=== PATIENT | female | born 1990 | race Caucasian/White ===

== ENCOUNTER 2016-12-20 17:44 | Emergency (ER) | payer OTHER ==
[~2016-12-20] VITALS: Wt 65.0 kg
[2016-12-20] MEDS ORDERED: predniSONE 20 MG TAB PO STA (19:30)
[2016-12-20] MEDS ORDERED: ALBUTEROL 0.5% (NEB) 2.5 MG/0.5 ML AMP NEB STA (19:30)
[2016-12-20] MEDS ORDERED: IPRATROPIUM (NEB) 0.5 MG/2.5 ML AMP NEB STA (19:30)
--- NOTE | 2016-12-20 20:35 | RADRPT ---
PROCEDURE: XR Chest AP portable CLINICAL INDICATION: Asthma attack TECHNIQUE: An AP portable radiograph of the chest was submitted. COMPARISON: None. FINDINGS: Support Hardware: None Cardiovascular: The cardiovascular silhouette appears unremarkable. Lung Floyd: The lung floyd are hyperexpanded but clear. Pleural Spaces: No pneumothorax or pleural effusion is identified. Osseous Structures: The osseous structures appear intact. Soft Tissues: Bilateral nipple studs are evident. IMPRESSION: 1. Pulmonary hyperexpansion. 2. Otherwise, unremarkable portable chest. Physician Katt Date Time Electronically viewed and signed by Haleigh Sesay Physician on 12/20/2016 20:35 RH/
[2016-12-20] MEDS ORDERED: AZIT250T94 PO (21:06)
[2016-12-20] MEDS ORDERED: D-ME473S18 PO (21:07)
[2016-12-20] MEDS ORDERED: ALBU2.5V3 NEB (21:07)
[2016-12-20] MEDS ORDERED: PRED20TA PO (21:07)
[2016-12-20] MEDS ORDERED: ALBU8.5H3 INH (21:07)
--- NOTE | 2016-12-20 21:13 | ERD ---
ER Documentation Chief Complaint Date/Time DATE: 12/20/16 TIME: 21:08 Chief Complaint ASTHMA HPI Patient is a 26-year-old female who presents to the emergency department with "asthma attack". Patient states she has had a productive cough for the last 3 days. She states that her cough is worse at night. Patient has not taken any cough syrup. Patient states that she is having some wheezing. Patient states she has been using her albuterol inhaler with minimal alleviation of symptoms. Patient has ran out of her inhaler and is requesting refills. Patient denies any fever, chills, nausea, vomiting, abdominal pain, ear pain, throat pain, loss of consciousness. She states that her roommate is also sick with the flu. No recent travel. ROS All systems reviewed and are negative except as per history of present illness. Medications Home Meds Active Scripts Dextromethorphan Hb-Promethazine Hcl (Promethazine DM Syrup) 473 Ml Syrup, 5 ML PO Q6 Y for COUGH, #1 BOT Prov:DARRYN RAINES PA-C 12/20/16 Albuterol Sulfate* (Albuterol Sulfate* Neb) 0.083%-3 Ml Neb, 5 MG NEB Q4 Y for SHORTNESS OF BREATH, #30 EA Prov:DARRYN RAINES PA-C 12/20/16 Prednisone* (Prednisone*) 20 Mg Tab, 40 MG PO DAILY for 4 Days, TAB Prov:DARRYN RAINES PA-C 12/20/16 Albuterol Sulfate* (Proair HFA*) 8.5 Gm Hfa.aer.ad, 2 PUFF INH Q4, #1 INHALER Prov:DARRYN RAINES PA-C 12/20/16 Azithromycin* (Zithromax*) 250 Mg Tablet, 250 MG PO .ZPACK DIRECTED, #6 TAB TAKE 500 MG (2 TABS) THE FIRST DAY THEN 250 MG (1 TAB) DAYS 2-5 Prov:DARRYN RAINES PA-C 12/20/16 PMhx/Soc Medical and Surgical Hx: pt denies Surgical Hx Hx Respiratory Disorders: Yes (asthma) Hx Alcohol Use: Yes (sometimes) Hx Substance Use: No Hx Tobacco Use: No Smoking Status: Never smoker Physical Exam Vitals Vital Signs Date Time Temp Pulse Resp B/P Pulse Ox O2 Delivery O2 Flow Rate FiO2 3/7/17 20:15 77 18 97 21 12/20/16 17:58 99.4 98 22 118/65 99 Physical Exam GENERAL: Well-developed, well-nourished female. Appears in no acute distress. No nasal flaring, no abdominal retractions, no tripoding. HEAD: Normocephalic, atraumatic. No deformities or ecchymosis. EYE: Pupils equal, round, and reactive to light. EOMs intact. No conjunctival erythema. No eye discharge. ENT: External ear without any masses or tenderness. Auditory canals clear bilaterally. TM visualized bilaterally, non-erythematous, non-bulging. Nasal mucosa pink with no discharge. Oropharynx is pink without any tonsillar erythema or exudates. No uvula deviation. No kissing tonsils. NECK: Supple. No meningismus. Normal ROM of the neck. LUNG: Slight wheezing noted in bilateral lower lobes. HEART: Regular rate and rhythm. No murmurs, rubs or gallops. BACK: No midline tenderness. EXTREMITES: Equal pulses bilaterally. No peripheral clubbing, cyanosis or edema. No unilateral leg swelling. NEUROLOGIC: Alert and oriented to person, place and time. Moving all four extremities. 5/5 strength in all extremities. Normal speech. Steady gait. SKIN: Normal color. Warm and dry. No rashes or lesions. Results 24 hrs Current Medications Medications (Trade) Dose Ordered Sig/Svetlana Route PRN Reason Start Time Stop Time Status Last Admin Dose Admin Albuterol (Proventil 0.5% (Neb)) 5 mg ONCE STAT NEB 12/20/16 19:30 12/20/16 19:32 DC 12/20/16 20:12 Ipratropium [place] (Atrovent 0.02% (Neb)) 0.5 mg ONCE STAT NEB 12/20/16 19:30 12/20/16 19:32 DC 12/20/16 20:12 Prednisone (Prednisone) 40 mg ONCE STAT PO 12/20/16 19:30 12/20/16 19:32 DC 12/20/16 20:11 Procedures/MDM ED COURSE: The patient was stable throughout ED course. I kept the patient and/or family informed of laboratory and diagnostic imaging results throughout the ED course. DIAGNOSTIC IMAGING: Read by radiologist. DIAGNOSTIC IMAGING REPORT Patient: OLIVER COYLE : 1990 Age: 26 Sex: F MR #: [id number] [facility] #: [id number] DOS: 12/20/161929 Ordering MD: DARRYN RAINES PA-C Location: [facility] Room/Bed: PROCEDURE: XR Chest AP portable CLINICAL INDICATION: Asthma attack TECHNIQUE: An AP portable radiograph of the chest was submitted. COMPARISON: None. FINDINGS: Support Hardware: None Cardiovascular: The cardiovascular silhouette appears unremarkable. Lung Godoy: The lung godoy are hyperexpanded but clear. Pleural Spaces: No pneumothorax or pleural effusion is identified. Osseous Structures: The osseous structures appear intact. Soft Tissues: Bilateral nipple studs are evident. IMPRESSION: 1. Pulmonary hyperexpansion. 2. Otherwise, unremarkable portable chest. Physician Katt Date Time Electronically viewed and signed by Physician Katt on 12/20/2016 20:35 RH/ CC: DARRYN RAINES PA-C MEDICATIONS GIVEN: Albuterol breathing treatment, prednisone p.o. Patient tolerated medication well with no adverse reactions. Patient reported improvement in breathing. Upon reexamination, patient was noted to have improved breath sounds. MEDICAL DECISION MAKING: This is a 26-year-old female who presents for concerns of an asthma exacerbation. Patient also reports a productive cough 3 days. Vital signs were reviewed. Patient was afebrile. Patient was not hypoxic. ENT exam was normal. Lung exam initially revealed faint wheezing in bilateral lobes. Patient was given a breathing treatment here in the emergency department which did improve her blood cells. Patient states that she felt better and she wished to go home. Patient was given p.o. prednisone here in the emergency department as well. Chest x-ray was unremarkable. Given these findings, the patients presentation is most consistent with asthma exacerbation secondary to viral URI. I have a much lower clinical concern for bacterial infections including pneumonia, meningitis, sinusitis, otitis externa, acute otitis media, strep pharyngitis, epiglottitis or peritonsillar abscess. Upon discharge, patient's O2 sat was noted to be 98%. Low suspicion for acute respiratory failure or respiratory distress. PRESCRIPTIONS: Albuterol nebulized treatments, pro-air inhaler, Z-Christian, Promethazine DM, prednisone DISCHARGE: At this time, patient is stable for discharge and outpatient management. She was provided with a copy of all imaging studies obtained today. Supportive therapies such as OTC throat lozenges, salt water gurgles, popsicles and jello discussed. I have instructed the patient to follow-up with his/her primary care physician in 1-2 days. I have instructed the patient to promptly return to the ER for any new or worsening symptoms including increased pain, swelling, fever, nausea, vomiting, weakness or difficulty breathing. The patient and/or family expressed understanding of and agreement with this plan. All questions were answered. Home care instructions were provided. Departure Diagnosis: Primary Impression: Asthma with acute exacerbation Asthma severity: unspecified severity Qualified Code: J45.901 - Asthma with acute exacerbation, unspecified asthma severity Additional Impression: Viral URI Condition: Stable Patient Instructions: Asthma, Acute (Child) Referrals: [facility] YOU HAVE RECEIVED A MEDICAL SCREENING EXAM AND THE RESULTS INDICATE THAT YOU DO NOT HAVE A CONDITION THAT REQUIRES URGENT TREATMENT IN THE EMERGENCY DEPARTMENT. FURTHER EVALUATION AND TREATMENT OF YOUR CONDITION CAN WAIT UNTIL YOU ARE SEEN IN YOUR DOCTORS OFFICE WITHIN THE NEXT 1-2 DAYS. IT IS YOUR RESPONSIBILITY TO MAKE AN APPOINTMENT FOR FOLOW-UP CARE. IF YOU HAVE A PRIMARY DOCTOR --you should call your primary doctor and schedule an appointment IF YOU DO NOT HAVE A PRIMARY DOCTOR YOU CAN CALL OUR PHYSICIAN REFERRAL HOTLINE AT IF YOU CAN NOT AFFORD TO SEE A PHYSICIAN YOU CAN CHOSE FROM THE FOLLOWING [facility] [address] [facility] [address] [facility] [facility] [address] [facility] [address] [facility] [address] [facility]. [facility]. [address] [facility]. [facility] YOU HAVE RECEIVED A MEDICAL SCREENING EXAM AND THE RESULTS INDICATE THAT YOU DO NOT HAVE A CONDITION THAT REQUIRES URGENT TREATMENT IN THE EMERGENCY DEPARTMENT. FURTHER EVALUATION AND TREATMENT OF YOUR CONDITION CAN WAIT UNTIL YOU ARE SEEN IN YOUR DOCTORS OFFICE WITHIN THE NEXT 1-2 DAYS. IT IS YOUR RESPONSIBILITY TO MAKE AN APPOINTMENT FOR FOLOW-UP CARE. IF YOU HAVE A PRIMARY DOCTOR --you should call your primary doctor and schedule and appointment IF YOU DO NOT HAVE A PRIMARY DOCTOR YOU CAN CALL OUR PHYSICIAN REFERRAL HOTLINE AT . IF YOU CAN NOT AFFORD TO SEE A PHYSICIAN YOU CAN CHOSE FROM THE FOLLOWING [facility] INSTITUTIONS: [facility] [address] [place] [address] [facility] [address] [place] [address] [facility] [address] [place] [address] Additional Instructions: Call your primary care doctor TOMORROW for an appointment during the next 1-2 days.See the doctor sooner or return here if your condition worsens before your appointment time. DARRYN RAINES PA-C Dec 20, 2016 21:12
[2016-12-20 21:19] VITALS: RESP 18
== END 2016-12-20 21:23 | disposition home or self-care (01) ==
LOC: FTE 17:44
DX: J45.901 Unspecified asthma with (acute) exacerbation (principal); J06.9 Acute upper respiratory infection, unspecified
CPT/HCPCS: 71010; 94664; J7512; Z7502; Z7610